=== PATIENT | female | born 1995 | race Caucasian/White ===

== ENCOUNTER 2018-02-13 11:04 | Emergency (ER) | payer OTHER ==
[2018-02-13] MEDS ORDERED: predniSONE TAB* 20 MG PO ONE (11:13)
[2018-02-13] MEDS ORDERED: EPINEPHRINE 1 MG/ML 1 ML VIAL IM ONE (11:14)
[2018-02-13 11:32] VITALS: BP 131/72
[2018-02-13] MEDS ORDERED: predniSONE TAB* 20 MG ONE (11:34)
[2018-02-13] MEDS ORDERED: EPINEPHRINE 1 MG/ML 1 ML VIAL ONE (11:34)
--- NOTE | 2018-02-13 11:49 | UC ---
Allergic Reaction HPI - HPI Summary HPI Summary: The patient is a 22-year-old female that presents here with an allergic reaction to almond milk. She has a known allergy to tree nuts. She was unaware that there was almond milk in her smoothie that she drink. She started developing some burning and tingling of her tongue and roof of her mouth. She developed generalized pruritus. She has a history of an anaphylactic reaction in the past. He has some mild throat tightness but no shortness of breath. She took 50 mg of Benadryl prior to arrival here. She has an EpiPen but did not use it. - History of Current Complaint Chief Complaint: UCAllergicReaction Stated Complaint: ALLERGIC REACTION Time Seen by Provider: 02/13/18 11:11 Hx Obtained From: Patient Hx Last Menstrual Period: 02/12/18 Onset/Duration: Gradual Onset, Lasting Minutes Severity Initially: Mild Severity Currently: Moderate Pain Intensity: 0 Pain Scale Used: 0-10 Numeric Character: Pruritus, Hives Aggravating Factor(s): Nothing Alleviating Factor(s): Nothing Associated Signs And Symptoms: Positive: Throat Tightening - very mild. Negative: Abdominal Pain, Chest Pain, Cough Wheezing, Diaphoresis, Difficulty Breathing, Hoarseness, Lightheadedness, Nausea, Rash, Syncope, Vomiting - Related Hx Possible Reaction To: Food - Allergies/Home Medications Allergies/Adverse Reactions: Allergies Allergy/AdvReac Type Severity Reaction Status Date / Time Tree Nuts Allergy Anaphylatic Verified 02/13/18 11:17 Shock Home Medications: Home Medications Cetirizine* [ZyrTEC 10 MG TAB*] 10 mg PO DAILY PRN 02/13/18 [History Confirmed 02/13/18] Dm/P-Ephed/Acetaminoph/Doxylam [Roxanna Warner Plus Severe 10-12.5-20-650 mg] 1 pow PO Q6H PRN 02/13/18 [History Confirmed 02/13/18] EPINEPHrine [Epipen 2-Manuel] 0.3 mg IM SEE INSTRUCTIONS PRN 02/13/18 [History Confirmed 02/13/18] diPHENhydraMINE PO* [Benadryl PO 25 MG TAB*] 50 mg PO ONCE 02/13/18 [History Confirmed 02/13/18] PMH/Surg Hx/FS Hx/Imm Hx Previously Healthy: Yes - Surgical History Surgical History: None - Family History Known Family History: Positive: Hypertension - Social History Alcohol Use: None Substance Use Type: None Smoking Status (MU): Never Smoked Tobacco Review of Systems Constitutional: Negative Skin: Rash Eyes: Negative ENT: Negative Respiratory: Negative Cardiovascular: Negative Gastrointestinal: Negative Genitourinary: Negative Motor: Negative Neurovascular: Negative Musculoskeletal: Negative Neurological: Negative Psychological: Negative All Other Systems Reviewed And Are Negative: Yes Physical Exam Triage Information Reviewed: Yes Appearance: Well-Appearing, No Pain Distress, Well-Nourished Vital Signs: Initial Vital Signs Temp 97.9 F 02/13/18 11:05 Pulse 98 02/13/18 11:05 Resp 20 02/13/18 11:05 BP 140/78 02/13/18 11:05 Pulse Ox 100 02/13/18 11:05 Vital Signs Reviewed: Yes Eyes: Positive: Conjunctiva Clear ENT: Positive: Hearing grossly normal, Uvula midline. Negative: Nasal congestion, Nasal drainage, Tonsillar swelling, Tonsillar exudate, Trismus, Muffled voice, Hoarse voice Neck: Positive: Supple, Nontender, No Lymphadenopathy Respiratory: Positive: Lungs clear, Normal breath sounds, No respiratory distress, No accessory muscle use Cardiovascular: Positive: RRR, No Murmur Musculoskeletal: Positive: ROM Intact, No Edema Neurological: Positive: Alert Psychological Exam: Normal Skin Exam: Other - dermatographia and hives Re-Evaluation - Re-Evaluation First Eval Re-Evaluation Time: 12:02 Change: Improved - hives gone/tongue and mouth feel normal Allergic Reaction Course/Dx - Differential Dx/Diagnosis Provider Diagnoses: analphylactic reaction to nuts Discharge - Sign-Out/Discharge Documenting (check all that apply): Patient Departure All imaging exams completed and their final reports reviewed: No Studies - Discharge Plan Condition: Stable Disposition: HOME Referrals: No Primary Care Phys,NOPCP [Primary Care Provider] - - Billing Disposition and Condition Condition: STABLE Disposition: Home
== END 2018-02-13 12:14 | disposition home or self-care (01) ==
LOC: UCCORT 11:04
DX: T78.05XA Anaphylactic reaction due to tree nuts and seeds, initial encounter (principal)
CPT/HCPCS: 96372; 99202; G0463; J7512